=== PATIENT | female | born 1965 | race Caucasian/White ===

== ENCOUNTER 2019-04-24 21:02 | Emergency (ER) | payer SELFPAY ==
[~2019-04-24] VITALS: Ht 157.5 cm; Wt 75.5 kg
[~2019-04-24 21:02] MED LIST: AMIO200T PO; ASPI81 PO; CARV25 PO; DOCU-281 PO; FERR1TAB85 PO; FURO20TA4 PO; INSLAN SQ; INSU100V SQ; SIMV20TA6 PO; WARF1 PO
[2019-04-24] MEDS ORDERED: AMLO-511 PO (21:16)
[2019-04-24] MEDS ORDERED: LISI-662 PO (21:16)
[2019-04-24] MEDS ORDERED: CARV6 PO (21:16)
[2019-04-24] MEDS ORDERED: ALLO100T PO (21:16)
[2019-04-24 21:24] LABS: GLUCOSE,POINT OF CARE 245 MG/DL (70-110)
[2019-04-24 23:22] VITALS: BP 136/78
== END 2019-04-24 22:45 | disposition left against medical advice (07) ==
LOC: EMS 21:04
DX: M79.642 Pain in left hand (principal); M25.532 Pain in left wrist; E11.65 Type 2 diabetes mellitus with hyperglycemia; I12.0 Hypertensive chronic kidney disease with stage 5 chronic kidney disease or end stage renal disease; E11.22 Type 2 diabetes mellitus with diabetic chronic kidney disease; N18.6 End stage renal disease; Z99.2 Dependence on renal dialysis; Z88.5 Allergy status to narcotic agent; Z79.4 Long term (current) use of insulin; Z79.82 Long term (current) use of aspirin; Z79.899 Other long term (current) drug therapy; Z87.891 Personal history of nicotine dependence

== ENCOUNTER 2019-04-25 09:56 | Emergency (ER) | payer SELFPAY ==
[~2019-04-25] VITALS: Ht 157.5 cm; Wt 75.9 kg
[~2019-04-25 09:56] MED LIST changes: +ALLO100T PO; +AMLO-511 PO; +CARV6 PO; +LISI-662 PO
[2019-04-25 10:14] LABS: GLUCOSE,POINT OF CARE 112 MG/DL (70-110)
[2019-04-25] MEDS ORDERED: COLCHICINE 0.6 MG TABLET PO ONE ×2 (10:45→11:45)
[2019-04-25] MEDS ORDERED: TraMADol HCL 50 MG TABLET PO ONE (10:45)
[2019-04-25] MEDS ORDERED: KETOROLAC TROMETHAMINE 30 MG/ML VIAL IM ONE (10:45)
[2019-04-25 12:25] VITALS: BP 153/82
== END 2019-04-25 12:29 | disposition home or self-care (01) ==
LOC: EMS 09:58
DX: M10.9 Gout, unspecified (principal); E11.22 Type 2 diabetes mellitus with diabetic chronic kidney disease; I12.0 Hypertensive chronic kidney disease with stage 5 chronic kidney disease or end stage renal disease; N18.6 End stage renal disease; Z99.2 Dependence on renal dialysis; Z87.891 Personal history of nicotine dependence; Z79.899 Other long term (current) drug therapy; Z79.4 Long term (current) use of insulin; Z88.6 Allergy status to analgesic agent; Z88.8 Allergy status to other drugs, medicaments and biological substances
CPT/HCPCS: 82962; 96372; 99284; J1885

== ENCOUNTER 2019-05-23 10:01 | Emergency (ER) | payer MEDICAID ==
[~2019-05-23] VITALS: Ht 157.5 cm; Wt 75.5 kg
[~2019-05-23 10:01] MED LIST changes: -AMIO200T PO; -ASPI81 PO; -CARV25 PO; -DOCU-281 PO; -FERR1TAB85 PO; -FURO20TA4 PO; -SIMV20TA6 PO; -WARF1 PO
[2019-05-23 10:14] LABS: GLUCOSE,POINT OF CARE 214 MG/DL (70-110)
[2019-05-23 11:01] LABS: BASOPHILS % (AUTO) 0.7 % (0.0-2.0); EOSINOPHILS % (AUTO) 2.7 % (1.0-6.0); HEMATOCRIT 34.7 % (36-46); HEMOGLOBIN 11.3 g/dL (12.0-16.0); LYMPHOCYTES # (AUTO) 0.9 K/uL (1.0-4.8); LYMPHOCYTES % (AUTO) 18.6 % (22.0-44.0); MEAN CORPUSCULAR HEMOGLOBIN 30.8 pg (26.0-34.0); MEAN CORPUSCULAR HGB CONC 32.7 G/dL (31.0-37.0); MEAN CORPUSCULAR VOLUME 94 fL (80-100); MONOCYTES # (AUTO) 0.4 K/uL (0.1-1.0); MONOCYTES % (AUTO) 8.6 % (2.0-9.0); NEUTROPHILS # (AUTO) 3.3 K/uL (1.8-7.7); NEUTROPHILS % (AUTO) 69.4 % (40.0-70.0); PLATELET COUNT (AUTO) 216 K/uL (150-450); RED BLOOD CELL COUNT(AUTO) 3.68 MIL/uL (4.00-5.20); RED CELL DISTRIBUTION WIDTH 15.8 % (11.5-14.5)
[2019-05-23 11:10] LABS: CALCIUM, TOTAL 9.2 mg/dL (8.8-10.5); CREATININE 2.05 mg/dL (0.60-1.30); POTASSIUM 3.9 mmol/L (3.5-5.1)
[2019-05-23] MEDS ORDERED: NITROGLYCERIN 2% (1 GM=INCH) PACKET TP ONE (11:15)
[2019-05-23] MEDS ORDERED: ASPIRIN 81 MG CHEWABLE TABLET PO ONE (11:15)
[2019-05-23 11:21] LABS: ALBUMIN 3.1 g/dL (3.4-5.0); BILIRUBIN,TOTAL 0.5 mg/dL (0.1-1.0); TOTAL PROTEIN, SERUM 8.3 g/dL (6.4-8.2)
[2019-05-23] MEDS ORDERED: HYDROmorphone 2 MG/ML SYRINGE IVP ONE (12:15)
[2019-05-23 12:47] VITALS: BP 130/96
== END 2019-05-23 13:15 | disposition home or self-care (01) ==
LOC: EMS 10:02
DX: R07.89 Other chest pain (principal); E11.22 Type 2 diabetes mellitus with diabetic chronic kidney disease; I12.0 Hypertensive chronic kidney disease with stage 5 chronic kidney disease or end stage renal disease; N18.6 End stage renal disease; Z99.2 Dependence on renal dialysis; Z79.899 Other long term (current) drug therapy; Z88.5 Allergy status to narcotic agent; Z88.6 Allergy status to analgesic agent; Z95.5 Presence of coronary angioplasty implant and graft
CPT/HCPCS: 36415; 71045; 80053; 82550; 82962; 83880; 84484; 85025; 93005; 96374; 99285; J1170

== ENCOUNTER 2019-06-09 19:09 | Emergency (ER) | payer MEDICAID, OTHER ==
[~2019-06-09] VITALS: Ht 157.5 cm; Wt 75.0 kg
[~2019-06-09 19:09] MED LIST changes: -AMLO-511 PO; +AMLO5TAB9 PO
[2019-06-09] MEDS ORDERED: FOLI0.8T2 PO (19:49)
[2019-06-09 19:54] LABS: GLUCOSE,POINT OF CARE 265 MG/DL (70-110)
[2019-06-09] MEDS ORDERED: KETOROLAC TROMETHAMINE 30 MG/ML VIAL IM ONE (20:45)
[2019-06-09] MEDS ORDERED: TraMADol HCL 50 MG TABLET PO ONE (20:45)
[2019-06-09] MEDS ORDERED: HYDROmorphone 2 MG/ML SYRINGE IM ONE (22:00)
[2019-06-09 22:40] VITALS: BP 121/71
== END 2019-06-09 22:57 | disposition home or self-care (01) ==
LOC: EMS 19:11
DX: M25.562 Pain in left knee (principal); M25.512 Pain in left shoulder; E11.9 Type 2 diabetes mellitus without complications; I13.11 Hypertensive heart and chronic kidney disease without heart failure, with stage 5 chronic kidney disease, or end stage renal disease; Z88.5 Allergy status to narcotic agent; Z79.899 Other long term (current) drug therapy
CPT/HCPCS: 73030; 82962; 93005; 96372; 99283; J1170; J1885

== ENCOUNTER 2019-06-19 22:52 | Emergency (ER) | payer OTHER ==
[~2019-06-19] VITALS: Ht 157.5 cm; Wt 75.9 kg
[~2019-06-19 22:52] MED LIST changes: -AMLO5TAB9 PO; +CEPH500 PO; +COLC0.6T76 PO; +FOLI0.8T2 PO; -LISI-662 PO; +PANT40TA25 PO; +PRED20 PO
[2019-06-19 23:15] LABS: GLUCOSE,POINT OF CARE 173 MG/DL (70-110)
[2019-06-19 23:58] LABS: BASOPHILS % (AUTO) 0.7 % (0.0-2.0); EOSINOPHILS % (AUTO) 0.5 % (1.0-6.0); HEMATOCRIT 38.6 % (36-46); HEMOGLOBIN 12.4 g/dL (12.0-16.0); LYMPHOCYTES # (AUTO) 1.5 K/uL (1.0-4.8); LYMPHOCYTES % (AUTO) 13.8 % (22.0-44.0); MEAN CORPUSCULAR HEMOGLOBIN 30.8 pg (26.0-34.0); MEAN CORPUSCULAR VOLUME 96 fL (80-100); MONOCYTES # (AUTO) 0.5 K/uL (0.1-1.0); MONOCYTES % (AUTO) 4.1 % (2.0-9.0); NEUTROPHILS # (AUTO) 8.9 K/uL (1.8-7.7); NEUTROPHILS % (AUTO) 80.9 % (40.0-70.0); PLATELET COUNT (AUTO) 303 K/uL (150-450); RED BLOOD CELL COUNT(AUTO) 4.02 MIL/uL (4.00-5.20); RED CELL DISTRIBUTION WIDTH 15.6 % (11.5-14.5)
[2019-06-20] MEDS: SODIUM CHLORIDE 0.9% 1,000 ML IV ONE ×2 (00:44→00:49)
[2019-06-20] MEDS: ONDANSETRON HCL 4 MG/2 ML VIAL IVP ONE (00:45)
[2019-06-20 01:39] LABS: BILIRUBIN,TOTAL 0.6 mg/dL (0.1-1.0); CALCIUM, TOTAL 9.1 mg/dL (8.8-10.5); CREATININE 3.55 mg/dL (0.60-1.30); POTASSIUM 3.6 mmol/L (3.5-5.1); TOTAL PROTEIN, SERUM 7.1 g/dL (6.4-8.2)
[2019-06-20 07:41] LABS: C.DIFF TOXINS A&B, Stool Negative (Negative)
[2019-06-20 07:42] LABS: C.DIFF GDH ANTIGEN, Stool Positive (Negative)
[2019-06-20] MEDS: CARVEDILOL 3.125 MG TABLET PO ONE (08:23)
[2019-06-20] MEDS: VANCOMYCIN HCL 125 MG/2.5 ML SOLUTION ORAL.SYG PO ONE (08:23)
[2019-06-20 09:40] VITALS: BP 132/64
== END 2019-06-20 09:45 | disposition home or self-care (01) ==
LOC: EMS 22:52
DX: A04.72 Enterocolitis due to Clostridium difficile, not specified as recurrent (principal); E11.22 Type 2 diabetes mellitus with diabetic chronic kidney disease; I12.0 Hypertensive chronic kidney disease with stage 5 chronic kidney disease or end stage renal disease; N18.6 End stage renal disease; Z99.2 Dependence on renal dialysis; Z79.4 Long term (current) use of insulin; Z88.5 Allergy status to narcotic agent; Z79.899 Other long term (current) drug therapy
CPT/HCPCS: 36415; 80053; 82550; 82962; 83690; 84484; 85025; 87045; 87324; 87449; 89055; 93005 ×2; 96361; 96374; 99284; J2405; J7030

== ENCOUNTER 2019-10-18 09:03 | Emergency (ER) | payer OTHER ==
[~2019-10-18] VITALS: Ht 157.5 cm; Wt 75.0 kg
[~2019-10-18 09:03] MED LIST changes: -COLC0.6T76 PO
[2019-10-18 09:35] LABS: GLUCOSE,POINT OF CARE 169 MG/DL (70-110)
[2019-10-18] MEDS ORDERED: SODIUM CHLORIDE 0.9% 500 ML IV ONE (10:15)
[2019-10-18] MEDS ORDERED: ACETAMINOPHEN 500 MG TABLET PO ONE (10:15)
[2019-10-18] MEDS ORDERED: ONDANSETRON HCL 4 MG/2 ML VIAL IVP ONE (10:15)
[2019-10-18 10:29] LABS: BASOPHILS % (AUTO) 0.8 % (0.0-2.0); EOSINOPHILS % (AUTO) 0.3 % (1.0-6.0); HEMATOCRIT 45.9 % (36-46); HEMOGLOBIN 15.3 g/dL (12.0-16.0); LYMPHOCYTES # (AUTO) 0.5 K/uL (1.0-4.8); LYMPHOCYTES % (AUTO) 10.3 % (22.0-44.0); MEAN CORPUSCULAR HEMOGLOBIN 32.6 pg (26.0-34.0); MEAN CORPUSCULAR HGB CONC 33.4 G/dL (31.0-37.0); MEAN CORPUSCULAR VOLUME 98 fL (80-100); MONOCYTES # (AUTO) 0.3 K/uL (0.1-1.0); NEUTROPHILS # (AUTO) 3.6 K/uL (1.8-7.7); NEUTROPHILS % (AUTO) 81.6 % (40.0-70.0); PLATELET COUNT (AUTO) 104 K/uL (150-450); RED CELL DISTRIBUTION WIDTH 18.8 % (11.5-14.5)
[2019-10-18 10:42] LABS: CALCIUM, TOTAL 9.6 mg/dL (8.8-10.5); CREATININE 3.94 mg/dL (0.60-1.30); INR 1.1 (0.9-1.1); POTASSIUM 4.9 mmol/L (3.5-5.1); PROTHROMBIN TIME 11.3 SEC (9.4-11.6)
[2019-10-18 10:53] LABS: ALBUMIN 3.8 g/dL (3.4-5.0); BILIRUBIN,TOTAL 1.6 mg/dL (0.1-1.0); TOTAL PROTEIN, SERUM 8.1 g/dL (6.4-8.2)
[2019-10-18 13:29] VITALS: BP 148/71
== END 2019-10-18 13:40 | disposition home or self-care (01) ==
LOC: EMS 09:03
DX: R11.2 Nausea with vomiting, unspecified (principal); R10.13 Epigastric pain; R19.7 Diarrhea, unspecified; I12.0 Hypertensive chronic kidney disease with stage 5 chronic kidney disease or end stage renal disease; E11.22 Type 2 diabetes mellitus with diabetic chronic kidney disease; N18.6 End stage renal disease; Z99.2 Dependence on renal dialysis; Z79.4 Long term (current) use of insulin; Z88.5 Allergy status to narcotic agent; Z88.8 Allergy status to other drugs, medicaments and biological substances
CPT/HCPCS: 36415; 74176; 80053; 82962; 83690; 84702; 85025; 85610; 85730; 96361; 96374; 99285; J2405; J7040

== ENCOUNTER 2019-10-23 19:45 | Emergency (ER) | payer OTHER ==
[~2019-10-23] VITALS: Ht 157.5 cm; Wt 75.0 kg
[~2019-10-23 19:45] MED LIST changes: -CEPH500 PO
[2019-10-23] MEDS ORDERED: INSU100V SQ (20:02)
[2019-10-23 20:39] LABS: BASOPHILS % (AUTO) 0.3 % (0.0-2.0); EOSINOPHILS % (AUTO) 0.1 % (1.0-6.0); HEMATOCRIT 43.8 % (36-46); HEMOGLOBIN 14.7 g/dL (12.0-16.0); LYMPHOCYTES # (AUTO) 0.3 K/uL (1.0-4.8); LYMPHOCYTES % (AUTO) 4.7 % (22.0-44.0); MEAN CORPUSCULAR HEMOGLOBIN 32.2 pg (26.0-34.0); MEAN CORPUSCULAR HGB CONC 33.7 G/dL (31.0-37.0); MEAN CORPUSCULAR VOLUME 96 fL (80-100); MONOCYTES # (AUTO) 0.1 K/uL (0.1-1.0); MONOCYTES % (AUTO) 2.7 % (2.0-9.0); PLATELET COUNT (AUTO) 118 K/uL (150-450); RED BLOOD CELL COUNT(AUTO) 4.59 MIL/uL (4.00-5.20); RED CELL DISTRIBUTION WIDTH 18.2 % (11.5-14.5)
[2019-10-23 20:40] LABS: NEUTROPHILS % (AUTO) 92.2 % (40.0-70.0)
[2019-10-23 21:05] LABS: ANION GAP 15 mmol/L (8-16); CALCIUM, TOTAL 8.8 mg/dL (8.8-10.5); CARBON DIOXIDE 27 mmol/L (22-29); CHLORIDE 90 mmol/L (98-107); GLOMERULAR FILTR. RATE CALC 7 mL/min (>60); GLUCOSE,RANDOM 55 mg/dL (70-110); POTASSIUM 3.6 mmol/L (3.5-5.1); SODIUM SERUM 132 mmol/L (136-145); UREA NITROGEN, BLOOD 63 mg/dL (7-18)
[2019-10-23 21:12] LABS: ALANINE AMINOTRANSFERASE 319 U/L (12-78); ALBUMIN 3.1 g/dL (3.4-5.0); ALKALINE PHOSPHATASE 707 U/L (46-116); ASPARTATE AMINOTRANSFERASE 234 U/L (15-37); BILIRUBIN,TOTAL 3.5 mg/dL (0.1-1.0); LIPASE 1210 U/L (73-393); TOTAL PROTEIN, SERUM 7.7 g/dL (6.4-8.2)
[2019-10-23] MEDS ORDERED: SODIUM CHLORIDE 0.9% 250 ML IV ONE (21:45)
[2019-10-23] MEDS ORDERED: ONDANSETRON HCL 4 MG/2 ML VIAL IVP ONE (21:45)
[2019-10-23 21:46] LABS: HCG,QUANTITATIVE < 1 mIU/mL (0-6)
[2019-10-23] MEDS ORDERED: PIPERACILLIN/TAZO 3.375 GM/D5W 50 ML IV ONE (22:30)
[2019-10-23 23:40] VITALS: BP 121/54
[2019-10-24] MEDS ORDERED: DEXTROSE 50%-WATER 25 GM/50 ML SYRINGE IVP ONE (00:15)
[2019-10-24 00:27] LABS: GLUCOSE,POINT OF CARE 42 MG/DL (70-110)
[2019-10-24 01:03] LABS: GLUCOSE,POINT OF CARE 205 MG/DL (70-110)
== END 2019-10-24 00:40 | disposition short-term general hospital (02) ==
LOC: EMS 19:46
DX: K85.10 Biliary acute pancreatitis without necrosis or infection (principal); I12.0 Hypertensive chronic kidney disease with stage 5 chronic kidney disease or end stage renal disease; E11.22 Type 2 diabetes mellitus with diabetic chronic kidney disease; N18.6 End stage renal disease; Z99.2 Dependence on renal dialysis; Z88.5 Allergy status to narcotic agent; Z79.4 Long term (current) use of insulin
CPT/HCPCS: 36415; 76700; 80053; 82962; 83690; 84702; 85025; 93005; 96365; 96375; 99285; J2405; J2543; J7040

== ENCOUNTER 2019-11-06 15:56 | Inpatient (IN) | payer OTHER ==
[~2019-11-06] VITALS: Ht 152.4 cm; Wt 72.0 kg
[~2019-11-06 15:56] MED LIST changes: -PRED20 PO
[2019-11-06 16:34] LABS: BASOPHILS % (AUTO) 0.3 % (0.0-2.0); EOSINOPHILS % (AUTO) 0.2 % (1.0-6.0); HEMATOCRIT 28.8 % (36-46); HEMOGLOBIN 9.7 g/dL (12.0-16.0); LYMPHOCYTES # (AUTO) 0.9 K/uL (1.0-4.8); LYMPHOCYTES % (AUTO) 11.8 % (22.0-44.0); MEAN CORPUSCULAR HEMOGLOBIN 32.5 pg (26.0-34.0); MEAN CORPUSCULAR HGB CONC 33.9 G/dL (31.0-37.0); MEAN CORPUSCULAR VOLUME 96 fL (80-100); MONOCYTES # (AUTO) 0.4 K/uL (0.1-1.0); MONOCYTES % (AUTO) 4.9 % (2.0-9.0); NEUTROPHILS # (AUTO) 6.6 K/uL (1.8-7.7); NEUTROPHILS % (AUTO) 82.8 % (40.0-70.0); PLATELET COUNT (AUTO) 231 K/uL (150-450); RED CELL DISTRIBUTION WIDTH 18.8 % (11.5-14.5)
[2019-11-06 16:46] LABS: CALCIUM, TOTAL 8.9 mg/dL (8.8-10.5); CREATININE 3.73 mg/dL (0.60-1.30); POTASSIUM 3.4 mmol/L (3.5-5.1)
[2019-11-06 16:50] LABS: INR 1.1 (0.9-1.1); PROTHROMBIN TIME 11.4 SEC (9.4-11.6)
[2019-11-06 16:52] LABS: ALBUMIN 2.4 g/dL (3.4-5.0); BILIRUBIN,TOTAL 0.8 mg/dL (0.1-1.0); TOTAL PROTEIN, SERUM 6.7 g/dL (6.4-8.2)
[2019-11-06] MEDS ORDERED: APIX2.5T PO (17:07)
[2019-11-06] MEDS ORDERED: TraMADol HCL 50 MG TABLET PO ONE (17:45)
[2019-11-06] MEDS ORDERED: 0.9% SODIUM CHLORIDE 10 ML SYRINGE IVP PRN (21:30)
[2019-11-06] MEDS ORDERED: ACETAMINOPHEN 325 MG TABLET PO PRN (21:30)
[2019-11-06] MEDS ORDERED: ONDANSETRON HCL 4 MG/2 ML VIAL IVP PRN ×2 (21:30→23:30)
[2019-11-06 22:36] VITALS: BP 146/61
[2019-11-06] MEDS ORDERED: IPRATROPIUM BROMIDE 0.5 MG/2.5 ML NEB SOLUTION NEB PRN (23:30)
[2019-11-06] MEDS ORDERED: DEXTROSE 50%-WATER 25 GM/50 ML SYRINGE IVP PRN (23:30)
[2019-11-06] MEDS ORDERED: ZOLPIDEM TARTRATE 5 MG TABLET PO PRN (23:30)
[2019-11-06] MEDS ORDERED: ALBUTEROL SULFATE 2.5 MG/0.5 ML NEB SOLUTION NEB PRN (23:30)
[2019-11-06] MEDS ORDERED: MAGNESIUM HYDROXIDE SUSPENSION 30 ML UDCUP PO PRN (23:30)
[2019-11-07] VITALS (7 sets, daily range): BP systolic 98–128; BP diastolic 52–65
[2019-11-07 00:27] LABS: GLUCOMETER DEV NAME(LOC) 5N.1; GLUCOSE,POINT OF CARE 144 MG/DL (70-110)
[2019-11-07 06:39] LABS: BASOPHILS % (AUTO) 0.3 % (0.0-2.0); EOSINOPHILS % (AUTO) 0.1 % (1.0-6.0); HEMATOCRIT 22.1 % (36-46); HEMOGLOBIN 7.9 g/dL (12.0-16.0); LYMPHOCYTES # (AUTO) 1.2 K/uL (1.0-4.8); LYMPHOCYTES % (AUTO) 15.7 % (22.0-44.0); MEAN CORPUSCULAR HGB CONC 35.6 G/dL (31.0-37.0); MEAN CORPUSCULAR VOLUME 96 fL (80-100); MONOCYTES # (AUTO) 0.4 K/uL (0.1-1.0); MONOCYTES % (AUTO) 5.4 % (2.0-9.0); NEUTROPHILS % (AUTO) 78.5 % (40.0-70.0); PLATELET COUNT (AUTO) 219 K/uL (150-450); RED BLOOD CELL COUNT(AUTO) 2.31 MIL/uL (4.00-5.20); RED CELL DISTRIBUTION WIDTH 18.3 % (11.5-14.5)
[2019-11-07 07:16] LABS: ALBUMIN 2.2 g/dL (3.4-5.0); BILIRUBIN,TOTAL 0.8 mg/dL (0.1-1.0); CALCIUM, TOTAL 8.2 mg/dL (8.8-10.5); CHOL/HDL RATIO 2.4 (3.9-5.7); CREATININE 4.07 mg/dL (0.60-1.30); FREE T4 (FREE THYROXINE) 1.58 ng/dL (0.76-1.46); MAGNESIUM 1.5 mg/dL (1.80-2.40); POTASSIUM 3.9 mmol/L (3.5-5.1); THYROID STIMULATING HORMONE 2.05 uIU/mL (0.36-3.74); TOTAL PROTEIN, SERUM 5.9 g/dL (6.4-8.2)
[2019-11-07 07:25] LABS: URIC ACID 6.6 mg/dL (2.6-7.2)
[2019-11-07 07:33] LABS: HEMOGLOBIN A1C 6.6 % (4.5-6.2)
[2019-11-07] MEDS: CARVEDILOL 6.25 MG TABLET PO SCH ×2 (07:59→19:56)
[2019-11-07] MEDS: ALLOPURINOL 100 MG TABLET PO SCH ×2 (08:00→19:51)
[2019-11-07] MEDS: PANTOPRAZOLE SODIUM 40 MG DR TABLET PO SCH (08:00)
[2019-11-07] MEDS: VITAMIN B COMP/VIT C/FOLIC ACID CAPSULE PO SCH (08:00)
[2019-11-07] MEDS ORDERED: LIDOCAINE/PF 1% 30 ML VIAL ONE (08:11)
[2019-11-07] MEDS ORDERED: SODIUM CHLORIDE 0.9% IRRIG BTL 1,000 ML IRRIG ONE (08:22)
[2019-11-07] MEDS ORDERED: MAGNESIUM SULFATE 2 GM/WATER 50 ML IV ONE (09:30)
[2019-11-07] MEDS ORDERED: SODIUM CHLORIDE 0.9% 50 ML ONE (10:33)
[2019-11-07] MEDS ORDERED: SODIUM CHLORIDE 0.9% 2,000 ML ONE (12:03)
[2019-11-07] MEDS: INSULIN LISPRO 100 UNITS/ML SQ PRN ×2 (12:25→17:40)
[2019-11-07] MEDS ORDERED: SODIUM CITRATE 4% CATH FLUSH 5 ML SYRINGE IVCATH ONE ×2 (13:30)
[2019-11-07 14:11] LABS: GLUCOMETER DEV NAME(LOC) 5S.1; GLUCOSE,POINT OF CARE 116 MG/DL (70-110)
[2019-11-07 14:12] LABS: GLUCOMETER DEV NAME(LOC) 5S.1; GLUCOSE,POINT OF CARE 146 MG/DL (70-110)
[2019-11-07 14:28] LABS: HEMATOCRIT 21.3 % (36-46); HEMOGLOBIN 7.2 g/dL (12.0-16.0)
[2019-11-07] MEDS: ACETAMINOPHEN 325 MG TABLET PO PRN (16:45)
[2019-11-07] MEDS ORDERED: MANNITOL 25%-12.5 GM/50 ML VIAL IVP ONE (17:52)
[2019-11-07 20:10] LABS: HEMATOCRIT 21.6 % (36-46); HEMOGLOBIN 7.3 g/dL (12.0-16.0)
[2019-11-07] MEDS ORDERED: INSULIN GLARGINE,HUM.REC.ANLOG 100 UNITS/ML SQ SCH (21:00)
[2019-11-08 02:26] LABS: HEMOGLOBIN 7.1 g/dL (12.0-16.0)
[2019-11-08 02:38] LABS: HEMATOCRIT 20.9 % (36-46)
[2019-11-08 04:45] VITALS: BP 110/57
[2019-11-08 08:20] VITALS: BP 102/64
[2019-11-08] MEDS: ALLOPURINOL 100 MG TABLET PO SCH (08:44)
[2019-11-08] MEDS: VITAMIN B COMP/VIT C/FOLIC ACID CAPSULE PO SCH (08:44)
[2019-11-08] MEDS: CARVEDILOL 6.25 MG TABLET PO SCH (08:45)
[2019-11-08] MEDS: PANTOPRAZOLE SODIUM 40 MG DR TABLET PO SCH (08:45)
[2019-11-08 08:59] LABS: BASOPHILS % (AUTO) 0.7 % (0.0-2.0); EOSINOPHILS % (AUTO) 0.9 % (1.0-6.0); HEMATOCRIT 22.9 % (36-46); LYMPHOCYTES # (AUTO) 1.4 K/uL (1.0-4.8); LYMPHOCYTES % (AUTO) 22.2 % (22.0-44.0); MEAN CORPUSCULAR HGB CONC 34.8 G/dL (31.0-37.0); MEAN CORPUSCULAR VOLUME 98 fL (80-100); MONOCYTES # (AUTO) 0.3 K/uL (0.1-1.0); MONOCYTES % (AUTO) 5.4 % (2.0-9.0); NEUTROPHILS # (AUTO) 4.6 K/uL (1.8-7.7); NEUTROPHILS % (AUTO) 70.8 % (40.0-70.0); PLATELET COUNT (AUTO) 258 K/uL (150-450); RED BLOOD CELL COUNT(AUTO) 2.34 MIL/uL (4.00-5.20); RED CELL DISTRIBUTION WIDTH 18.6 % (11.5-14.5)
[2019-11-08] MEDS ORDERED: PARICALCITOL 5 MCG/1 ML VIAL IVP SCH (09:00)
[2019-11-08 09:31] LABS: CALCIUM, TOTAL 8.7 mg/dL (8.8-10.5); CREATININE 2.81 mg/dL (0.60-1.30); MAGNESIUM 1.8 mg/dL (1.80-2.40); PHOSPHORUS 3.6 mg/dL (2.5-4.9)
[2019-11-08 11:47] LABS: GLUCOMETER DEV NAME(LOC) 5N.1; GLUCOSE,POINT OF CARE 77 MG/DL (70-110)
[2019-11-08] MEDS: ACETAMINOPHEN 325 MG TABLET PO PRN (11:49)
[2019-11-08 11:51] LABS: GLUCOMETER DEV NAME(LOC) 5S.1; GLUCOSE,POINT OF CARE 146 MG/DL (70-110)
[2019-11-08 11:51] LABS: GLUCOMETER DEV NAME(LOC) 5S.1; GLUCOSE,POINT OF CARE 108 MG/DL (70-110)
[2019-11-08 13:46] VITALS: BP 114/47
[2019-11-08 20:03] LABS: GLUCOMETER DEV NAME(LOC) 5S.1; GLUCOSE,POINT OF CARE 110 MG/DL (70-110)
[2019-11-09] MEDS ORDERED: EPOETIN ALFA 10,000 UNITS/ML VIAL SQ SCH (09:00)
== END 2019-11-08 13:35 | disposition home or self-care (01) | DRG 206 ==
LOC: EMS 15:57 → 5N 20:59
PROVIDERS: ADMIT Internal Medicine Geriatric Medicine; ATTEND Internal Medicine Geriatric Medicine
PROC: 5A1D70Z Performance of Urinary Filtration, Intermittent, Less than 6 Hours Per Day (ICD-10-PCS; principal; 2019-11-07)
DX: T82.838A Hemorrhage due to vascular prosthetic devices, implants and grafts, initial encounter (principal); E11.22 Type 2 diabetes mellitus with diabetic chronic kidney disease; D68.9 Coagulation defect, unspecified; D69.6 Thrombocytopenia, unspecified; E46 Unspecified protein-calorie malnutrition; D62 Acute posthemorrhagic anemia; I13.11 Hypertensive heart and chronic kidney disease without heart failure, with stage 5 chronic kidney disease, or end stage renal disease; N18.6 End stage renal disease; N25.81 Secondary hyperparathyroidism of renal origin; E87.6 Hypokalemia; M10.9 Gout, unspecified; E83.39 Other disorders of phosphorus metabolism; E83.42 Hypomagnesemia; D63.8 Anemia in other chronic diseases classified elsewhere; E83.51 Hypocalcemia; I48.0 Paroxysmal atrial fibrillation; K21.9 Gastro-esophageal reflux disease without esophagitis; R62.7 Adult failure to thrive; Y84.1 Kidney dialysis as the cause of abnormal reaction of the patient, or of later complication, without mention of misadventure at the time of the procedure; Z79.01 Long term (current) use of anticoagulants; Z99.2 Dependence on renal dialysis; Z82.49 Family history of ischemic heart disease and other diseases of the circulatory system; Z83.3 Family history of diabetes mellitus; Z95.2 Presence of prosthetic heart valve; Y92.89 Other specified places as the place of occurrence of the external cause; Z68.31 Body mass index [BMI] 31.0-31.9, adult; Z88.5 Allergy status to narcotic agent; Z79.899 Other long term (current) drug therapy; Z79.4 Long term (current) use of insulin
CPT/HCPCS: 83036; 83735; 84100; 84439; 84443; 84550; 85014; 85018; 86850; 86900; 86901; 87081; 87340; 93306; 93970; J1815; J2150; J2501; J3475; J3490; J7030; J7050

== ENCOUNTER 2020-01-03 09:11 | Emergency (ER) | payer OTHER ==
[~2020-01-03] VITALS: Ht 160 cm; Wt 88.6 kg
[2020-01-03] MEDS ORDERED: LISI-660 PO (09:23)
[2020-01-03] MEDS ORDERED: ATOR20TA86 PO (09:23)
[2020-01-03] MEDS ORDERED: AMLO5TAB9 PO (09:23)
[2020-01-03] MEDS ORDERED: AMIO400T4 PO (09:23)
[2020-01-03] MEDS ORDERED: INSU100I26 IM (09:23)
[2020-01-03] MEDS ORDERED: COLC0.6T73 PO (09:23)
[2020-01-03] MEDS ORDERED: SODIUM CHLORIDE 0.9% 1,000 ML IV ONE (09:42)
[2020-01-03] MEDS ORDERED: ONDANSETRON HCL 4 MG/2 ML VIAL IVP ONE (09:45)
[2020-01-03 10:29] LABS: BASOPHILS % (AUTO) 1.4 % (0.0-2.0); EOSINOPHILS % (AUTO) 0.8 % (1.0-6.0); HEMATOCRIT 38.4 % (36-46); HEMOGLOBIN 12.7 g/dL (12.0-16.0); LYMPHOCYTES # (AUTO) 0.8 K/uL (1.0-4.8); LYMPHOCYTES % (AUTO) 22.5 % (22.0-44.0); MEAN CORPUSCULAR HEMOGLOBIN 33.3 pg (26.0-34.0); MEAN CORPUSCULAR VOLUME 101 fL (80-100); MONOCYTES # (AUTO) 0.3 K/uL (0.1-1.0); MONOCYTES % (AUTO) 7.6 % (2.0-9.0); NEUTROPHILS # (AUTO) 2.5 K/uL (1.8-7.7); NEUTROPHILS % (AUTO) 67.7 % (40.0-70.0); PLATELET COUNT (AUTO) 133 K/uL (150-450)
[2020-01-03 10:30] LABS: CREATININE 2.96 mg/dL (0.60-1.30); POTASSIUM 4.1 mmol/L (3.5-5.1)
[2020-01-03 10:36] LABS: ALBUMIN 2.8 g/dL (3.4-5.0); BILIRUBIN,TOTAL 0.6 mg/dL (0.1-1.0); TOTAL PROTEIN, SERUM 6.5 g/dL (6.4-8.2)
[2020-01-03] MEDS ORDERED: LOPERAMIDE HCL 2 MG CAPSULE PO ONE (13:15)
[2020-01-03 13:39] VITALS: BP 142/68
== END 2020-01-03 14:05 | disposition home or self-care (01) ==
LOC: EMS 09:13
DX: R11.2 Nausea with vomiting, unspecified (principal); R19.7 Diarrhea, unspecified; E11.22 Type 2 diabetes mellitus with diabetic chronic kidney disease; I12.0 Hypertensive chronic kidney disease with stage 5 chronic kidney disease or end stage renal disease; N18.6 End stage renal disease; Z99.2 Dependence on renal dialysis; Z79.4 Long term (current) use of insulin; Z79.899 Other long term (current) drug therapy; Z88.5 Allergy status to narcotic agent
CPT/HCPCS: 36415; 74022; 80053; 82962; 83690; 85025; 93005; 96361; 96374; 99284; J2405; J7030

== ENCOUNTER 2020-02-06 07:05 | Emergency (ER) | payer OTHER ==
[~2020-02-06] VITALS: Ht 152.4 cm; Wt 73.2 kg
[~2020-02-06 07:05] MED LIST changes: +AMIO400T4 PO; +AMLO5TAB9 PO; +ATOR20TA86 PO; +COLC0.6T73 PO; +INSU100I26 IM; +LISI-660 PO
[2020-02-06] MEDS ORDERED: LIDOCAINE 5% TRANSDERMAL PATCH TD ONE (07:15)
[2020-02-06 07:33] LABS: GLUCOSE,POINT OF CARE 149 MG/DL (70-110)
[2020-02-06 08:04] LABS: CALCIUM, TOTAL 8.6 mg/dL (8.8-10.5); CREATININE 2.49 mg/dL (0.60-1.30); MAGNESIUM 1.6 mg/dL (1.80-2.40); POTASSIUM 3.8 mmol/L (3.5-5.1)
[2020-02-06 08:05] LABS: INR 1.1 (0.9-1.1)
[2020-02-06] MEDS ORDERED: SODIUM CHLORIDE 0.9% 100 ML ONE ×2 (08:47→12:05)
[2020-02-06] MEDS ORDERED: IOVERSOL 320 MG/ML 100 ML VIAL ONE (08:48)
[2020-02-06] MEDS ORDERED: IOVERSOL 350 MG/ML 150 ML VIAL ONE (08:58)
[2020-02-06] MEDS ORDERED: FentaNYL CITRATE-PF 100 MCG/2 ML VIAL IVP ONE ×3 (10:00→14:00)
[2020-02-06 12:43] LABS: APPEARANCE,URINE CLOUDY (CLEAR); BILIRUBIN,URINE NEGATIVE (NEGATIVE); GLUCOSE, URINE (UA) NEGATIVE (NEGATIVE); KETONES,URINE NEGATIVE (NEGATIVE); LEUKOCYTE ESTERASE ,URINE LARGE (NEGATIVE); NITRATE,URINE NEGATIVE (NEGATIVE); OCCULT BLOOD,URINE NEGATIVE (NEGATIVE); PROTEIN,URINE SEE CONFIRM (NEGATIVE); UROBILINOGEN,URINE 0.2 mg/dL (<=1.0)
[2020-02-06 13:04] LABS: BACTERIA,URINE Many /HPF (None Seen); RBC,URINE 0-2 /HPF (0-2); SQUAMOUS EPITHELIAL CELL,UR Few /LPF (None Seen); SULFOSALICYLIC ACID,URINE 2+ (Negative); WBC,URINE 26-50 /HPF (0-5)
[2020-02-06 14:38] VITALS: BP 158/73
[2020-02-06] MEDS ORDERED: CEPHALEXIN MONOHYDRATE 500 MG CAPSULE PO ONE (14:45)
[2020-02-06 14:47] LABS: BASOPHILS % (AUTO) 0.4 % (0.0-2.0); EOSINOPHILS % (AUTO) 2.2 % (1.0-6.0); HEMATOCRIT 34.8 % (36-46); HEMOGLOBIN 11.4 g/dL (12.0-16.0); LYMPHOCYTES # (AUTO) 0.9 K/uL (1.0-4.8); LYMPHOCYTES % (AUTO) 20.5 % (22.0-44.0); MEAN CORPUSCULAR HEMOGLOBIN 31.7 pg (26.0-34.0); MEAN CORPUSCULAR HGB CONC 32.7 G/dL (31.0-37.0); MEAN CORPUSCULAR VOLUME 97 fL (80-100); MONOCYTES # (AUTO) 0.3 K/uL (0.1-1.0); NEUTROPHILS # (AUTO) 3.1 K/uL (1.8-7.7); NEUTROPHILS % (AUTO) 69.9 % (40.0-70.0); PLATELET COUNT (AUTO) 115 K/uL (150-450); RED BLOOD CELL COUNT(AUTO) 3.58 MIL/uL (4.00-5.20); RED CELL DISTRIBUTION WIDTH 16.6 % (11.5-14.5)
== END 2020-02-06 16:46 | disposition home or self-care (01) ==
LOC: EMS 07:05
DX: S30.0XXA Contusion of lower back and pelvis, initial encounter (principal); N39.0 Urinary tract infection, site not specified; E11.9 Type 2 diabetes mellitus without complications; I10 Essential (primary) hypertension; Z99.2 Dependence on renal dialysis; Z98.890 Other specified postprocedural states; Z79.899 Other long term (current) drug therapy; Z88.5 Allergy status to narcotic agent; Z88.8 Allergy status to other drugs, medicaments and biological substances; Z79.4 Long term (current) use of insulin; W18.39XA Other fall on same level, initial encounter; Y93.89 Activity, other specified; Y92.89 Other specified places as the place of occurrence of the external cause; Y99.8 Other external cause status
CPT/HCPCS: 36415; 73503; 74175; 80048; 81001; 82962; 83735; 85025; 85610; 87077; 87086; 87186; 96374; 96376; 99285; J3010; J7050; Q9967

== ENCOUNTER 2020-03-26 08:55 | Emergency (ER) | payer OTHER ==
[~2020-03-26] VITALS: Ht 157.5 cm; Wt 69.0 kg
[~2020-03-26 08:55] MED LIST changes: -INSU100I26 IM; +PANT-31 PO; -PANT40TA25 PO
[2020-03-26 10:06] LABS: BASOPHILS % (AUTO) 0.2 % (0.0-2.0); EOSINOPHILS % (AUTO) 0.2 % (1.0-6.0); HEMATOCRIT 27.5 % (36-46); HEMOGLOBIN 9.2 g/dL (12.0-16.0); LYMPHOCYTES # (AUTO) 0.6 K/uL (1.0-4.8); LYMPHOCYTES % (AUTO) 8.2 % (22.0-44.0); MEAN CORPUSCULAR HEMOGLOBIN 33.3 pg (26.0-34.0); MEAN CORPUSCULAR HGB CONC 33.6 G/dL (31.0-37.0); MEAN CORPUSCULAR VOLUME 99 fL (80-100); MONOCYTES # (AUTO) 0.3 K/uL (0.1-1.0); MONOCYTES % (AUTO) 4.6 % (2.0-9.0); NEUTROPHILS # (AUTO) 6.1 K/uL (1.8-7.7); PLATELET COUNT (AUTO) 136 K/uL (150-450); RED BLOOD CELL COUNT(AUTO) 2.77 MIL/uL (4.00-5.20); RED CELL DISTRIBUTION WIDTH 17.4 % (11.5-14.5)
[2020-03-26 10:08] LABS: NEUTROPHILS % (AUTO) 86.8 % (40.0-70.0)
[2020-03-26 10:18] LABS: CREATININE 2.25 mg/dL (0.60-1.30); MAGNESIUM 1.7 mg/dL (1.80-2.40)
[2020-03-26 10:24] LABS: INFLUENZA TYPE A NEGATIVE FOR TYPE A (NEGATIVE); INFLUENZA TYPE B NEGATIVE FOR TYPE B (NEGATIVE)
[2020-03-26] MEDS ORDERED: MAGNESIUM SULFATE 1 GM in DEXTROSE 5%-WATER 50 ML IV ONE (11:45)
[2020-03-26] MEDS ORDERED: POTASSIUM CHLORIDE 20 MEQ ER TABLET PO ONE (12:00)
[2020-03-26 12:11] LABS: GLUCOSE,POINT OF CARE 159 MG/DL (70-110)
[2020-03-26 14:55] VITALS: BP 138/70
== END 2020-03-26 15:05 | disposition home or self-care (01) ==
LOC: EMS 08:56
DX: E83.42 Hypomagnesemia (principal); E87.6 Hypokalemia; E11.9 Type 2 diabetes mellitus without complications; I10 Essential (primary) hypertension; Z79.4 Long term (current) use of insulin; Z79.899 Other long term (current) drug therapy; Z88.5 Allergy status to narcotic agent; Z03.818 Encounter for observation for suspected exposure to other biological agents ruled out
CPT/HCPCS: 36415; 71045; 80048; 82962; 83735; 85025; 87040; 87635; 87804; 96365; 96366; 99285; J3475; J7060

== ENCOUNTER 2020-03-29 18:24 | Emergency (ER) | payer OTHER ==
[~2020-03-29] VITALS: Ht 157.5 cm; Wt 75.0 kg
[2020-03-29] MEDS ORDERED: 0.9% SODIUM CHLORIDE 10 ML SYRINGE IVP PRN (19:00)
[2020-03-29] MEDS ORDERED: ACETAMINOPHEN 325 MG TABLET PO ONE (19:00)
[2020-03-29 20:17] LABS: BASOPHILS % (AUTO) 0.3 % (0.0-2.0); EOSINOPHILS % (AUTO) 0.5 % (1.0-6.0); HEMATOCRIT 27.5 % (36-46); LYMPHOCYTES # (AUTO) 0.6 K/uL (1.0-4.8); LYMPHOCYTES % (AUTO) 8.2 % (22.0-44.0); MEAN CORPUSCULAR HEMOGLOBIN 32.7 pg (26.0-34.0); MEAN CORPUSCULAR HGB CONC 32.6 G/dL (31.0-37.0); MEAN CORPUSCULAR VOLUME 100 fL (80-100); MONOCYTES # (AUTO) 0.4 K/uL (0.1-1.0); MONOCYTES % (AUTO) 5.4 % (2.0-9.0); NEUTROPHILS # (AUTO) 6.4 K/uL (1.8-7.7); PLATELET COUNT (AUTO) 154 K/uL (150-450); RED BLOOD CELL COUNT(AUTO) 2.74 MIL/uL (4.00-5.20); RED CELL DISTRIBUTION WIDTH 16.7 % (11.5-14.5)
[2020-03-29 20:20] LABS: NEUTROPHILS % (AUTO) 85.6 % (40.0-70.0)
[2020-03-29 20:27] LABS: APPEARANCE,URINE CLEAR (CLEAR); BILIRUBIN,URINE NEGATIVE (NEGATIVE); GLUCOSE, URINE (UA) NEGATIVE (NEGATIVE); KETONES,URINE NEGATIVE (NEGATIVE); LEUKOCYTE ESTERASE ,URINE NEGATIVE (NEGATIVE); NITRATE,URINE NEGATIVE (NEGATIVE); OCCULT BLOOD,URINE NEGATIVE (NEGATIVE); PH,URINE 8.5 (5.0-8.0); PROTEIN,URINE POS 1+ (NEGATIVE); UROBILINOGEN,URINE 0.2 mg/dL (<=1.0)
[2020-03-29 20:30] LABS: INR 1.1 (0.9-1.1); PROTHROMBIN TIME 10.9 SEC (9.4-11.6)
[2020-03-29 20:41] LABS: CALCIUM, TOTAL 8.9 mg/dL (8.8-10.5); POTASSIUM 4.8 mmol/L (3.5-5.1)
[2020-03-29 20:48] LABS: LACTIC ACID 1.4 mmol/L (0.4-2.0)
[2020-03-29 20:55] LABS: ALBUMIN 2.8 g/dL (3.4-5.0); BILIRUBIN,TOTAL 0.6 mg/dL (0.1-1.0); TOTAL PROTEIN, SERUM 7.2 g/dL (6.4-8.2)
[2020-03-29 21:06] LABS: INFLUENZA TYPE A NEGATIVE FOR TYPE A (NEGATIVE); INFLUENZA TYPE B NEGATIVE FOR TYPE B (NEGATIVE)
[2020-03-29 21:26] LABS: BACTERIA,URINE Rare /HPF (None Seen); RBC,URINE None Seen /HPF (0-2); SQUAMOUS EPITHELIAL CELL,UR Few /LPF (None Seen); WBC,URINE 0-2 /HPF (0-5)
[2020-03-29 21:27] LABS: TRANSITIONAL EPI CELLS,URINE Rare /LPF (None Seen)
[2020-03-29] MEDS ORDERED: DEXAMETHASONE SOD PHOS 4 MG/ML 5 ML VIAL IVP ONE (21:30)
[2020-03-29] MEDS ORDERED: DEXAMETHASONE SOD PHOS 4 MG/ML 5 ML VIAL IM ONE (21:30)
[2020-03-29 22:16] VITALS: BP 140/36
== END 2020-03-29 22:26 | disposition home or self-care (01) ==
LOC: EMS 18:25
DX: Z03.818 Encounter for observation for suspected exposure to other biological agents ruled out (principal); M10.9 Gout, unspecified; I12.0 Hypertensive chronic kidney disease with stage 5 chronic kidney disease or end stage renal disease; E11.22 Type 2 diabetes mellitus with diabetic chronic kidney disease; N18.6 End stage renal disease; Z99.2 Dependence on renal dialysis; Z79.4 Long term (current) use of insulin; Z88.5 Allergy status to narcotic agent; Z79.899 Other long term (current) drug therapy
CPT/HCPCS: 36415; 71045; 71250; 80053; 81001; 82550; 83605; 83880; 84145; 84484; 85025; 85610; 85730; 87040; 87635; 87804; 93005; 96372; 99285; J1100